=== PATIENT | female | born 1975 | race African-American/Black ===

== ENCOUNTER → 2016-12-05 | Outpatient (CLI) | payer BC ==
--- NOTE | ~2016-12-05 | EKG ---
[place] [address] [facility] [place] [address] ELECTROCARDIOGRAM REPORT Name: ALIZAABELINO Room #: [facility] [id number] Admission: 12/05/16 Attend Phys: Ryan Aguilar MD, FAAF Discharge: Date of : 73 Report #: [id number] THIS REPORT FOR: //name// [facility] Test Date: 2016-12-05 Test Time: 15:58:12 Pat Name: ABELINO ABRAMS Department: Room: Gender: F Pharmacology Teacher: Shweta BACA : 1975 Requested By: Ryan Aguilar Order Number: [id number] MD: Samuel Ortiz Measurements Intervals [place] Rate: 81 P: 45 OR: 139 QRS: 17 QRSD: 87 T: 9 QT: 352 QTc: 409 Interpretive Statements Sinus rhythm Voltage criteria for LVH No previous ECG available for comparison Electronically Signed On 12-06-2016 8:09:07 CDT by Samuel Ortiz [email or web address] <ELECTRONICALLY SIGNED> By: Samuel Ortiz MD, [facility] 12/06/16 [id number] Samuel Ortiz MD, FACC /EPI
== END ==
LOC: LAB 15:36
DX: Z00.00 Encounter for general adult medical examination without abnormal findings (principal); R53.83 Other fatigue

== ENCOUNTER 2018-05-12 09:28 | Emergency (ER) | payer BC ==
[~2018-05-12] VITALS: Ht 165.1 cm; Wt 96.2 kg
[2018-05-12] MEDS ORDERED: IRON325 PO (09:48)
[2018-05-12] MEDS ORDERED: TRAMADOL 50 MG50 MG PO (09:48)
[2018-05-12] MEDS ORDERED: PRILOSEC OTC20 MG PO (09:48)
[2018-05-12] MEDS ORDERED: UNICOMPLEX M TA1 TA1 PO (09:48)
[2018-05-12] MEDS ORDERED: MOBIC7.5 MG PO (10:57)
[2018-05-12] MEDS ORDERED: NORFLEX100 MG PO (10:57)
[2018-05-12 11:23] VITALS: BP 133/66
== END 2018-05-12 11:24 | disposition home or self-care (01) ==
LOC: ER 09:28
DX: S39.012A Strain of muscle, fascia and tendon of lower back, initial encounter (principal); S29.012A Strain of muscle and tendon of back wall of thorax, initial encounter; M25.562 Pain in left knee; Z88.6 Allergy status to analgesic agent; V89.2XXA Person injured in unspecified motor-vehicle accident, traffic, initial encounter; Y93.89 Activity, other specified; Y92.89 Other specified places as the place of occurrence of the external cause; Y99.8 Other external cause status